=== PATIENT | male | born 1940 | race Caucasian/White ===

== ENCOUNTER → 2016-10-25 | Outpatient (CLI) | payer MEDICARE, BC ==
[~2016-10-25] MED LIST: ACID CONTROLLER20 MG PO; ALBUTEROL20 ml INH; ALDACTAZIDE; ALDACTONE PO; ALLERCLEAR10 MG PO; AMLODIPINE BESY10 MG PO; APRESOLINE PO; ASPIRIN PO; ASPIRIN81 M1 PO; ASPIRIN81 MG PO; ASPIRINEC PO; ATENOLOL PO; ATENOLOL50 MG PO; CARTIA; CARTIA XT PO; CARTIA XT120 MG PO; CENTRUM PO; CERTAGEN PO; CIMETIDINE300 MG PO; CLOPIDOGREL BIS75 MG PO; CRESTOR PO; DILTIAZEM 24HR120 M1 PO; FAMOTIDINE20 M1 PO; FISH OIL 1,0001 CAP PO; FISH OIL 1,001000 MG PO; FISH OIL300 MG PO; FLEXERIL PO; FOSINOPRIL PO; FUROSEMIDE40 MG; FUROSEMIDE40 MG PO; GABAPENTIN300 MG PO; GLUCOTROL PO; GLUCOTROL XL10 MG; GLUCOTROL XL10 MG PO; HUMALOG; HUMULIN N VIAL SUBQ; HYDRALAZINE HCL25 MG PO; HYDRALAZINE HCL50 MG PO; IMDUR-ER30 MG; ISOSORBIDE MONO60 M1 PO; KCL PO; LANTUS SOLOSTAR3 ML SQ; LASIX PO; METOLAZONE2.5 MG PO; MICRO-K10 MEQ PO; MINOXIDIL PO; MUCOMYST200 MG/ML PO; MULTI-DAY VITAM1 TAB PO; MULTI-VITAMIN1 TAB PO; MULTIVITAMINS1 EAC3 PO; NEURONTIN100 MG PO; NORVASC PO; PLAVIX PO; POTASSIUM PO; PRAVASTATIN SOD40 MG PO; PREDNISONE PO; PRESERVISION SO1 CAP PO; PRESERVISION1 EA PO; PRILOSEC PO; RELION NOV100 UNIT/1 SUBQ; RYTHMOL SR PO; SIMVASTATIN40 MG PO; SPIRONOLACTONE50 MG; SPIRONOLACTONE50 MG PO; SYMBICORT; TRICOR134 MG PO; TRILIPIX135 MG PO; ULORIC40 MG PO; VICODIN 5/500 T1 TAB PO; VIT E PO; VITAMIN C; ZAROXYLYN PO; ZYLOPRIM100 MG; ZYLOPRIM100 MG PO; [UNRECOGNIZED DRUG - OTHER]
[2016-10-25 15:39] LABS: ALBUMIN SERUM 3.8 g/dL (3.5-5.0); BILIRUBIN,TOTAL 0.5 mg/dL (0.2-2.0); CALCIUM SERUM 10.6 mg/dL (8.4-10.2); CREATININE SERUM 4.4 mg/dL (0.6-1.4); GLOM FILT RATE Estimated 12.2 mL/min (>60); PHOSPHOROUS 4.5 mg/dL (2.5-4.6); POTASSIUM 4.2 mmol/L (3.5-5.1); PROTEIN TOTAL SERUM 7.5 g/dL (6.0-8.3); URIC ACID 7.2 mg/dL (2.6-7.2)
[2016-10-28 11:08] LABS: CALCIUM (PTHINTACT) 10.9 mg/dL (8.6-10.3)
== END | disposition home or self-care (01) ==
LOC: CLAB 14:57
PROVIDERS: Internal Medicine Nephrology
DX: N25.81 Secondary hyperparathyroidism of renal origin (principal); N18.5 Chronic kidney disease, stage 5
CPT/HCPCS: 36415; 80053; 82310; 83970; 84100; 84550

== ENCOUNTER 2016-11-24 04:26 | Inpatient (IN) | payer MEDICARE, BC ==
--- NOTE | ~2016-11-24 | CT57 ---
[facility] A Service of [facility] RADIOLOGY TEXT RESULTS PATIENT: SIMBA LOMBARDO LOCATION: [facility] 307- : 41 UNIT #: [id number] AGE: [address]: Darlyn Rowley MD SEX: M ORDER DR: [id number] [facility] [address] [place], [place] [address] [id number] I MR#: [id number] Acc #: [id number] NAME: SIMBA LOMBARDO. : 1940 SEX: M STUDY DATE/TIME: 11/26/2016 8:06 UNIT: [address] ROOM: [facility] STUDY DESCRIPTION: CT Chest Wo Cont Attending Physician: Darlyn Rowley M.D. Referring Physician: Reyna Gonsalez M.D. Ordering Physician: Magdiel Gonsales M.D. Primary Care Physician: Nicole Ochoa M.D. MEDICAL IMAGING REPORT This report is preliminary unless electronic signature is present EXAM Chest CT, no contrast, 11/26/16. PROCEDURE Axial unenhanced chest CT with multiplanar reformats. This CT exam was performed with one or more of the following radiation dose reduction techniques: automatic exposure control, adjustment of mA and/or kV according to patient size, and iterative reconstruction. HISTORY Short of air for 2 days. FINDINGS There is no pulmonary infiltrate. There is no pleural effusion. There is some basilar mostly linear densities likely atelectasis, left slightly greater than right, but no consolidation is seen. There is no central airway obstruction. While there are small normal-sized mediastinal lymph nodes, there is no mediastinal mass or suspicious adenopathy. The thoracic aorta is normal in caliber. There are coronary atherosclerotic vascular calcifications. Images of the upper abdomen are remarkable for a small right adrenal low-density mass, probably a benign adenoma about 2.3 cm in size, though larger than at the time of the prior study in 2006, when it measured about 1.5 cm. There is probably also fatty infiltration of the liver. IMPRESSION 1. Minimal mostly linear densities at the lung bases posteriorly, very likely atelectasis, no compelling evidence of consolidation or effusion, pneumothorax or suspicious nodule. 2. Fatty infiltration of the liver. Right adrenal adenoma slightly larger than at the time of the 2007 exam, now about 2.3 compared to 1.5 cm previously. [facility] A Service of [facility] RADIOLOGY TEXT RESULTS PATIENT: SIMBA LOMBARDO LOCATION: [facility] 307-01 : 41 UNIT #: [id number] AGE: [address]: Darlyn Rowley MD SEX: M ORDER DR: 3. Coronary atherosclerotic vascular calcification. Dictated by... Joe Mckeon M.D. THIS IS AN ELECTRONICALLY VERIFIED REPORT Joe Mckeon M.D. at 11/27/2016 10:46 PM ISIDRO/leelee TD: 11/26/2016 16:44 JOB #: [id number] MEDICAL IMAGING REPORT Page 1 of 1 COPY
--- NOTE | ~2016-11-24 | EKG ---
PATIENT: SIMBA LOMBARDO UNIT #: [id number] Ventricular Rate: 97 BPM Atrial Rate: 98 BPM QRS Duration: 76 ms Q-T Interval: 376 ms QTC Calculation(Bezet): 477 ms Calculated R Platte: -5 degrees Calculated T Platte: 46 degrees Diagnosis Line: Atrial fibrillation with premature ventricular or Diagnosis Line: aberrantly conducted complexes Diagnosis Line: Septal infarct , age undetermined Diagnosis Line: Abnormal ECG Diagnosis Line: No previous ECGs available Diagnosis Line: Confirmed by JUDI SHARMA MD ([id number]) on 11/25/2016 Diagnosis Line: 6:26:35 PM INTERPRETING MD: EDITH FAITH
--- NOTE | ~2016-11-24 | NM69 ---
[facility] A Service of [facility] RADIOLOGY TEXT RESULTS PATIENT: SIMBA LOMBARDO LOCATION: [facility] : 41 UNIT #: [id number] AGE: [address]: Darlyn Rowley MD SEX: M ORDER DR: [id number] [facility] [address] [place], [place] [address] [id number] I MR#: [id number] Acc #: [id number] NAME: SIMBA LOMBARDO : 1940 SEX: M STUDY DATE/TIME: 11/25/2016 16:24 [facility]: [facility] STUDY DESCRIPTION: NM Pulm Vent and Perf Attending Physician: Darlyn Rowley M.D. Referring Physician: Reyna Gonsalez M.D. Ordering Physician: Kd Desai M.D. Primary Care Physician: Nicole Ochoa M.D. MEDICAL IMAGING REPORT This report is preliminary unless electronic signature is present EXAM Ventilation-perfusion lung scan 12/25/2016 COMPARISON Chest radiograph 11/24/2016 TECHNIQUE Study performed with 28.2 mCi Tc-99m DTPA aerosol by inhalation followed by 5 mCi Tc-99m MAA IV. FINDINGS Chest radiograph shows some interstitial prominence but no consolidation or effusion. Ventilation images slightly heterogeneous without segmental defect. There are no segmental perfusion defects. IMPRESSION Low likelihood ratio for pulmonary embolism. Dictated by... Joe Mckeon M.D. THIS IS AN ELECTRONICALLY VERIFIED REPORT Joe Mckeon M.D. at 11/26/2016 2:16 PM TEV/pcl TD: 11/25/2016 20:21 JOB #: [id number] MEDICAL IMAGING REPORT [facility] A Service [facility] RADIOLOGY TEXT RESULTS PATIENT: SIMBA LOMBARDO LOCATION: [facility] : 41 UNIT #: [id number] AGE: [address]: Darlyn Rowley MD SEX: M ORDER DR: Page 1 of 1 COPY
--- NOTE | ~2016-11-24 | CR72 ---
[facility] A Service of [facility] RADIOLOGY TEXT RESULTS PATIENT: SIMBA LOMBARDO LOCATION: [facility] 307-01 : 41 UNIT #: [id number] AGE: [address]: Reyna Gonsalez MD SEX: M ORDER DR: [id number] [facility] [address] [place], [place] [address] [id number] I MR#: [id number] Acc #: [id number] NAME: SIMBA LOMBARDO. : 1940 SEX: M STUDY DATE/TIME: 11/24/2016 5:31 UNIT: CEDOF ROOM: [facility] STUDY DESCRIPTION: CR Chest Single View Portable Attending Physician: Vinnie Altamirano M.D. Referring Physician: Vinnie Altamirano M.D. Ordering Physician: Soo Ash M.D. Primary Care Physician: Nicole Ochoa M.D. MEDICAL IMAGING REPORT This report is preliminary unless electronic signature is present EXAM AP portable chest, 11/24/2016 HISTORY 76-year-old male in the ED complaining of new onset shortness of air beginning last evening. He reports a history of congestive heart failure and diabetes. TECHNIQUE AP portable upright chest x-ray. FINDINGS Moderate cardiomegaly is stable since 04/09/2015. Today, mild diffuse interstitial pulmonary edema is present suggesting mild vascular congestion, correlate clinically. Tiny amount of pleural fluid within the minor fissure but no basilar pleural effusion is seen. No airspace consolidation or additional abnormality. IMPRESSION Cardiomegaly with mild diffuse interstitial pulmonary edema. Dictated by... Colton Jones M.D. THIS IS AN ELECTRONICALLY VERIFIED REPORT Colton Jones M.D. at 11/24/2016 9:58 PM Juan TD: 11/24/2016 08:02 JOB #: [id number] MEDICAL IMAGING REPORT Page 1 of 1 COPY
--- NOTE | ~2016-11-24 | US8 ---
[facility] A Service of [facility] RADIOLOGY TEXT RESULTS PATIENT: SIMBA LOMBARDO LOCATION: [facility] - : 41 UNIT #: [id number] AGE: [address]: Darlyn Rowley MD SEX: M ORDER DR: [id number] [facility] [address]. [place], [place] [address] [id number] I MR#: [id number] Acc #: [id number] NAME: SIMBA LOMBARDO : 1940 SEX: M STUDY DATE/TIME: 11/25/2016 13:18 UNIT: [address] ROOM: [facility] STUDY DESCRIPTION: US Abdominal Wall/Quadrant Attending Physician: Darlyn Rowley M.D. Referring Physician: Reyna Gonsalez M.D. Ordering Physician: Darlyn Rowley M.D. Primary Care Physician: Nicole Ochoa M.D. MEDICAL IMAGING REPORT This report is preliminary unless electronic signature is present EXAM Limited abdominal ultrasound, four-quadrant survey HISTORY Ascites. Abdomen distension today. FINDINGS Limited ultrasound, four-quadrant survey of the abdomen was performed to evaluate for the presence of ascites. No ascites is identified. IMPRESSION No abdominal ascites. Dictated by... Santos Hawkins M.D. THIS IS AN ELECTRONICALLY VERIFIED REPORT Santos Hawkins M.D. at 11/25/2016 10:53 PM DFL/peggy TD: 11/25/2016 17:56 JOB #: [id number] MEDICAL IMAGING REPORT Page 1 of 1 COPY
--- NOTE | ~2016-11-24 | CO ---
Unit #: [id number] #: [id number] Patient: SIMBA JACOBS [id number] [address] [place], [place] [address] [id number] I MR#: [id number] NAME: SIMBA JACOBS. ROOM: 307 Age: 76 Sex: M Admission Date: 11/24/2016 : 1940 Attending Physician: Vinnie Altamirano M.D. Primary Care Physician: Nicole Ochoa M.D. Consultation Date: 11/24/2016 CONSULTATION REPORT REASON FOR CONSULT Chronic kidney disease stage 5. HISTORY OF PRESENT ILLNESS Mr. Jacobs is a 76-year-old gentleman well known to Dr. Frances with CKD stage 5, who was admitted with shortness of breath and concern over congestive heart failure. I could not find an ejection fraction in the chart but this is assumed to be diastolic heart failure. He also has a history of COPD and a pericardial effusion with window in the past. Patient saw Dr. Frances in October. The note was reviewed and he has been to the dialysis education class; however, he has refused a fistula to this point. He does not monitor his weight at home but does feel more swollen in the legs and abdomen. He denies any chest pain. No urinary complaints. No nausea, vomiting, or diarrhea. He is on generous doses of diuretics at home. PAST MEDICAL HISTORY 1. CKD stage 5. 2. History of pericardial effusion. 3. Tamponade with window likely due to minoxidil at the time. 4. Diabetes. 5. Congestive heart failure, diastolic in nature. 6. Atrial fibrillation. 7. COPD. 8. GERD. 9. Hyperlipidemia. 10. Obstructive sleep apnea. PAST SURGICAL HISTORY Pericardial window. MEDICATIONS Current meds are as follows: 1. Klor-Con 20 mEq p.o. x1 dose still pending. 2. Atenolol 50 mg twice a day. 3. Hydralazine 25 mg t.i.d. 4. Imdur 60 mg daily. 5. Spironolactone 50 mg a day. 6. Glucotrol XL 10 mg twice a day. 7. Neurontin 200 mg t.i.d. 8. Lipitor 10 mg at bedtime. 9. Amlodipine 10 mg daily. 10. Plavix 75 mg a day. 11. Fenofibrate daily. Unit #: [id number] #: [id number] Patient: SIMBA JACOBS 12. Metolazone 2.5 mg weekly. 13. Multivitamin daily. 14. Fish oil twice a day. 15. Cardizem CD 120 mg at bedtime. 16. Famotidine 20 mg daily. 17. Bumex drip ordered at 2 mg per hour. ALLERGIES He has a coded allergy to NSAIDs. FAMILY HISTORY Negative as far as kidney disease is concerned. SOCIAL HISTORY He is a former smoker, quit when he was 41. 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 No alcohol or drug abuse reported. REVIEW OF SYSTEMS A complete 12-point review of systems was completed with the above findings. In addition, he denies any headaches or dizziness. No fevers. No chills. No nosebleed, sore throat, or earache. No palpitations. No cough or hemoptysis. No bright red blood per rectum or melena. No dysuria. No hematuria. He does have abdominal fullness and leg swelling. No rashes. No itching. No flank pain. No night sweats. No hot flashes. No intolerance to heat or cold. No bleeding issues. He thinks he has gained weight but not sure how much fluid weight has been gained. Unless otherwise indicated, the review of systems was negative. PHYSICAL EXAMINATION VITAL SIGNS: Patient is afebrile. Pulse 86, respiratory rate 22, blood pressure 145/86. GENERAL: This is a 76-year-old male who is alert and oriented x3 in no acute distress. HEENT: Head is atraumatic, normocephalic. Eyes show pink conjunctivae with no sclerae icterus. No nasal drainage or nosebleed. Oropharynx is moist. No thrush. NECK: Thick with no rigidity. HEART: Irregularly irregular with distant S1, S2. No murmur or rub appreciated. LUNGS: Mostly clear with some fine rales. No wheezing or rhonchi. Breathing is nonlabored. ABDOMEN: Obese, distended, nontender. Bowel sounds are present without masses. EXTREMITIES: No lower extremity clubbing or cyanosis. He has 1+ pitting edema below the knees bilaterally. SKIN: Skin is dry with no rashes. He does have some tattoos. MUSCULOSKELETAL: No CVA tenderness to palpation. No joint effusions noted. NEUROLOGIC: Cranial nerves are grossly intact with no gross motor deficits. LYMPHATIC: There is no neck, cervical lymphadenopathy. PSYCHIATRIC: Affect is normal. He does seem upset about being in the hospital. DIAGNOSTIC STUDIES LABORATORY: BNP was 577. INR 1.1. Chemistry early this morning noteworthy for a low potassium of 3.3, creatinine 3.5. Troponin negative. Unit #: [id number] #: [id number] Patient: SIMBA JACOBS CBC was remarkable only for a white count of 13. Last note from our office and lab from October 25 showed a creatinine of 4.4, so his creatinine is actually a little bit below baseline today. IMAGING: Chest x-ray was read as cardiomegaly with mild diffuse interstitial edema. ASSESSMENT AND PLAN 1. Chronic kidney disease stage 5: Overall, his kidney function looks stable. I do think there is room for diuresis, so we will continue him on the Bumex drip. Again, he has refused a fistula placement in the past as Dr. Frances has felt like he is going to be needing dialysis sometime in the near future. He is certainly at a big risk for a cardiac catheterization with dye exposure and if this is felt to be needed by cardiology, we would certainly need to prep beforehand and he would have to be under the understanding that he very well could need dialysis after the heart catheterization. 2. Congestive heart failure which is apparently diastolic in nature. We will continue his Bumex drip and diuresis and monitor daily weights and response. He has been placed on a fluid stricture. 3. Hypokalemia: Replacement has been ordered and I will be rechecking a potassium and a magnesium level this afternoon. 4. Hypertension: The patient is on multiple blood pressure medications and blood pressure at this time seems reasonable and certainly diuresis will help. 5. Chronic obstructive pulmonary disease with obstructive sleep apnea: I do believe pulmonary has been asked to see. 6. History of pericardial effusion with echo ordered. 7. Diabetes. 8. Chronic atrial fibrillation. I would like to thank Dr. Desai for this consult and the opportunity to participate in the evaluation and care of Mr. Jacobs. Dictated by... Denton Davis Jr., MKimberly. TOSHIA/ch TD: 11/24/2016 15:29 JOB #: [id number] CONSULTATION REPORT Page 1 of 1 X Denton Davis MD CONSULTATION REPORT
--- NOTE | ~2016-11-24 | CO ---
Unit #: [id number] #: [id number] Patient: SIMBA LOMBARDO [id number] [facility]. [address] [place], [place] [address] [id number] I MR#: [id number] NAME: SIMBA LOMBARDO. ROOM: 307 Age: 76 Sex: M Admission Date: 11/24/2016 : 1940 Attending Physician: Darlyn Rowley M.D. Primary Care Physician: Nicole Ochoa M.D. CONSULTATION REPORT HISTORY OF PRESENT ILLNESS A 76-year-old white male, followed by Dr. Harlan Broussard with a history of AFib; congestive heart failure; hypertension; hyperlipidemia; diabetes; obstructive sleep apnea; chronic kidney disease, stage 5; tobacco abuse, having reformed 35 years ago; some diastolic dysfunction; valvular heart disease, who presented to [facility]. [facility] after he awoke abruptly at 5:00 a.m. with shortness of breath. He had dyspnea while awake during the day and occasionally awakening from sleep with short of breath. He called EMS. He was transported here. Chest x-ray revealed bilateral interstitial infiltrates consistent with CHF. His lab work was significant for creatinine of 3.5, BNP of 577, normal cardiac enzymes. Lactic acid level of 1.1. He had no cough or purulent sputum, fever, or chills. We have been asked to see. He had been checked in our office in 05/2016 for his obstructive sleep apnea. He was compliant and therapeutic. He was averaging 8 hours and 26 minutes of CPAP use per day. His residual AHI on CPAP was 0.5 indicating a therapeutic effect. He has had outpatient pulmonary function test done for evaluation of dyspnea, which showed no significant obstruction and a normal DLCO, but evidence of small airways disease. PAST MEDICAL HISTORY Significant for AFib; congestive heart failure; hypertension; hyperlipidemia; diabetes; chronic kidney disease, stage 5; obstructive sleep apnea, compliant and therapeutic with CPAP. PAST SURGICAL HISTORY Pericardial window and back surgery. ALLERGIES Nonsteroidals. SOCIAL HISTORY Reformed smoker x35 years. No alcohol or illicit drugs. FAMILY HISTORY Negative for lung disease. HOME MEDICATIONS Atenolol, hydralazine, Imdur, Aldactone, glipizide, Lasix, Neurontin, pravastatin, amlodipine, Plavix, TriCor, metolazone, aspirin, multivitamins, fish oil, Cardizem, Pepcid, Claritin, Novolin, Humulin, Uloric. REVIEW OF SYSTEMS Unit #: [id number] #: [id number] Patient: SIMBA LOMBARDO CONSTITUTIONAL: No fevers or chills. HEENT: No purulent sputum. CARDIOVASCULAR: No chest pain. GI: No nausea or vomiting. : No hematuria or dysuria. ENDOCRINE: No polyuria or polydipsia. HEMATOLOGIC: No easy bleeding or bruising. SKIN: No rash. 10-point system otherwise negative. PHYSICAL EXAMINATION GENERAL: White male, in no distress, lying in bed. VITAL SIGNS: Blood pressure 158/72, pulse 85, respiratory rate 28, afebrile. HEENT: Normocephalic, atraumatic. Pupils are equal, round, and reactive. Sclerae nonicteric. Nasal passages patent. Posterior pharynx crowded. Mallampati III to IV. NECK: Supple. Trachea midline. No cervical or supraclavicular lymphadenopathy. LUNGS: Some crackles at the bases bilaterally. CARDIAC: Heart sounds distant. Irregularly irregular rhythm. Could not appreciate murmur, rub, or gallop. ABDOMEN: Nontender. Bowel sounds present. No hepatosplenomegaly. He does have a large nontender abdomen with evidence of a fluid wave. EXTREMITIES: With 1 to 2+ edema bilaterally. No cords palpated. SKIN: Warm and dry. PSYCHIATRIC: Affect calm. DIAGNOSTIC STUDIES LABORATORY RESULTS: Reviewed. White blood cell count 13,500, hematocrit 45.6, platelet count normal. CARDIOVASCULAR STUDIES: EKG, AFib. IMPRESSION 1. Congestive heart failure. 2. Likely diastolic dysfunction. 3. Atrial fibrillation. 4. Ascites. 5. Obstructive sleep apnea, compliant and therapeutic on CPAP by history. 6. Chronic kidney disease, stage 5. 7. Hypertension. 8. Hyperlipidemia. 9. History of pericardial effusion. PLAN Continue to wear his BiPAP or CPAP nightly. I would recommend diuresis, preload and afterload reduction. He is scheduled to have repeat echocardiogram. I will make further recommendations pending this. Dictated by... Carlos Clemente M.D. SOLO/layne TD: 11/25/2016 06:49 Unit #: [id number] #: [id number] Patient: SIMBA LOMBARDO JOB #: [id number] Harlan Broussard M.D. CONSULTATION REPORT Page 1 of 1 X Carlos Clemente MD CONSULTATION REPORT
--- NOTE | ~2016-11-24 | DS ---
Unit #: [id number] #: [id number] Patient: SIMBA LOMBARDO [id number] [address] [address] [id number] I MR#: [id number] NAME: SIMBA LOMBARDO. ROOM: 307 Age: 76 Sex: M Admission Date: 11/24/2016 : 1940 Discharge Date: Attending Physician: Darlyn Rowley M.D. Referring Physician: Reyna Gonsalez M.D. Primary Care Physician: Nicole Ochoa M.D. DISCHARGE SUMMARY DISCHARGE DIAGNOSES 1. Acute hypoxic respiratory failure. 2. Acute on chronic systolic heart failure. 3. Acute kidney injury. 4. Chronic kidney disease, stage 4. 5. Permanent atrial fibrillation: Patient does not want Coumadin because he had history of hemopericardium. 6. Obstructive sleep apnea. 7. No ascites, no pulmonary embolism. 8. Hypertension. 9. Hyperlipidemia. 10. Diabetes mellitus type 2. 11. Coronary artery disease, status post cardiac cath with left circumflex 30% to 40%. 12. Right coronary artery 70% to 75%. Medical management advised. 13. Ejection fraction 45% to 50%. 14. Hyperlipidemia. 15. On CPAP for obstructive sleep apnea. 16. Hypokalemia. 17. Pericardial effusion with pericardial drain x2 in 2006. 18. Gastroesophageal reflux disease. 19. Former smoker. CONSULTATION 1. Dr. Altamirano. 2. Dr. Gonsales. 3. Dr. Davis. PROCEDURE The patient had a cardiac cath which shows left circumflex 30% to 40%, RCA 70% to 75%. Mild pulmonary hypertension present. ALLERGIES NSAIDs. DISCHARGE MEDICATIONS 1. Neurontin 200 mg three times daily. 2. Loratadine 10 mg daily. 3. Fish oil 300 p.o. b.i.d. 4. TriCor 135 mg p.o. daily. 5. Norvasc 10 daily. 6. Tenormin 50 p.o. b.i.d. 7. Cardizem CD 120 p.o. daily. 8. Lasix 40 p.o. b.i.d. Unit #: [id number] #: [id number] Patient: SIMBA LOMBARDO 9. Metolazone 2.5 p.o. weekly. 10. Pravastatin 40 daily. 11. Hydralazine 25 three times daily. 12. Insulin NPH 20 units subcu three times daily with meals. 13. Humulin N U100 50 units b.i.d. subcu. 14. Pepcid 20 p.o. daily. 15. Multivitamin, one tab daily. 16. Aspirin 81 daily. 17. Plavix 75 daily. 18. Glucotrol XL 10 mg two times daily. 19. Imdur ER 60 daily. 20. Symbicort 160 mcg inhalation, two puffs b.i.d. 21. Albuterol MDI, two puffs inhalation four times daily p.r.n. shortness of breath. 22. Potassium 20 mEq p.o. daily. HOSPITALIZATION COURSE 76-year-old admitted because of shortness of breath. Acute hypoxic respiratory failure from CHF and severe pulmonary hypertension and chronic obstructive pulmonary disease: Currently, he is on 4 L. I am going to check home O2 evaluation and arrange home O2. Acute on chronic systolic heart failure: The patient was seen by cardiology. Patient's diuretics have been held because of acute kidney injury. Currently compensated. Continue the diuretics as per renal. Acute kidney injury with chronic kidney disease stage 5: The patient is seen by Dr. Davis. Currently, creatinine is stable. Patient was monitored 24 hours post cardiac catheterization for the creatinine which is stable. Severe pulmonary hypertension with congestive heart failure: Patient had a cardiac catheterization which shows coronary artery disease. Continue with medical management as per cardiology. Chronic obstructive pulmonary disease with exacerbation: Patient received Duo-Nebs. Continue with albuterol and Symbicort at home. Obstructive sleep apnea: Continue with CPAP. Hypokalemia: Replace with p.o. potassium. I gave prescription for it. History of pericardial effusion with hemopericardium. Patient is refusing Coumadin for A-fib. Atrial fibrillation, rate controlled. No anticoagulation because of patient refusing it. Chronic kidney disease, stage 5. Patient will be discharged home after seen by cardiology. Home O2 evaluation will be done before discharge. Arrange home O2. Follow with family physician in one week time, follow with Dr. Gonsales in two weeks time, follow with Dr. Altamirano as advised. Discharge time taken is 35 minutes. Unit #: [id number] #: [id number] Patient: SIMBA LOMBARDO Dictated by... Shailesh Souza TD: 11/28/2016 10:26 JOB #: [id number] DISCHARGE SUMMARY Page 1 of 1 X Darlyn Rowley MD X DISCHARGE SUMMARY
--- NOTE | ~2016-11-24 | US84 ---
[id number] [facility] [address] [place], [place] [address] [id number] MR#: [id number] Acc #: [id number] NAME: SIMBA LOMBARDO : 1940 SEX: M STUDY DATE/TIME: 11/25/2016 19:19 UNIT: C3A PCU ROOM: 307 STUDY DESCRIPTION: US LE Veins Complete Nic Stdy Attending Physician: Darlyn Rowley M.D. Referring Physician: Reyna Gonsalez M.D. Ordering Physician: Magdiel Gonsales M.D. Primary Care Physician: Nicole Ochoa M.D. MEDICAL IMAGING REPORT This report is preliminary unless electronic signature is present EXAM Bilateral lower extremity venous ultrasound HISTORY Shortness of air for 3 months. Lower extremity pain. TECHNIQUE Venous ultrasound examination of both lower extremities was performed using grayscale, spectral Doppler and color flow Doppler imaging. FINDINGS The examination is negative. There is no evidence of deep venous thrombus from the groin to the lower calf bilaterally. Visualized greater saphenous veins are also patent. IMPRESSION Negative examination. No evidence of lower extremity deep venous thrombosis. Dictated by... Santos Hawkins M.D. THIS IS AN ELECTRONICALLY VERIFIED REPORT Santos Hawkins M.D. at 11/25/2016 10:55 PM Magdaleno TD: 11/25/2016 22:24 JOB #: [id number] MEDICAL IMAGING REPORT Page 1 of 1 COPY
--- NOTE | ~2016-11-24 | HP ---
Unit #: [id number] #: [id number] Patient: SIMBA LOMBARDO [id number] [facility] [address]. [place], [place] [address] [id number] I MR#: [id number] NAME: SIMBA LOMBARDO. ROOM: 307 Age: Sex: M Admission Date: 11/24/2016 : 1940 Attending Physician: Vinnie Altamirano M.D. Referring Physician: Vinnie Altamirano M.D. Primary Care Physician: Nicole Ochoa M.D. HISTORY AND PHYSICAL SEE ADDENDUM REASON FOR ADMISSION Shortness of breath. HISTORY OF PRESENT ILLNESS The patient is a 76-year-old white male who follows with Dr. Broussard in the office for a history of AFib diagnosed in 2006, congestive heart failure, hypertension, hyperlipidemia, diabetes, obstructive sleep apnea, uses a CPAP, chronic kidney disease stage 5, history of tobacco abuse but quit 35 years ago. The patient also has a history of some diastolic dysfunction on an echo here in 2006 with valvular heart disease as well. The patient presented to the [facility] today after he states that around 5 a.m. he abruptly woke up with shortness of breath. 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 On assessment in the ER, the patient is comfortable. He has on oxygen per nasal cannula but states his breathing is improved. The patient denied any kind of chest pain. He did complain of maybe a little bit of pressure but no nausea, vomiting, diarrhea, fevers, chills, palpitations or syncope. The patient had a cardiac cath, he believes, 20 years ago. He is unsure of when his last stress test was but states that last January when he had an office visit with Dr. Broussard it was discussed that he should not have a stress test because even if he did have an abnormal test they would not be able to do a heart cath due to his kidney function and the dye. EKG showed AFib with a controlled rate and occasional PVC but no acute ischemic changes. Troponin is less than 0.05 x2. BNP is 577. Chest x-ray does show some failure with more prominent vasculature. The patient was given an IV dose of Lasix here in the ER and is to be started on a Bumex drip which has not been started. He is also on a nitro drip that currently is at 70 mg/hour and they are titrating just to keep his blood pressure low, although, on arrival to the ER, the patient's blood pressure was only 150/93. We have been asked to admit the patient for shortness of breath for further evaluation and workup. The patient is not very physically active on a daily basis where he states that if he gets up and walks very far, he does get very short of breath. He does not wear oxygen at home but he is limited due to his shortness of breath. He does occasionally go to the grocery store to do shopping but has to stop frequently to take breaks. Unit #: [id number] #: [id number] Patient: SIMBA LOMBARDO PAST MEDICAL HISTORY 1. Permanent AFib. 2. CHF. 3. Hypertension. 4. Hyperlipidemia. 5. Diabetes. 6. Chronic kidney disease stage 5. 7. Obstructive sleep apnea. He uses a CPAP. PAST SURGICAL HISTORY 1. Two pericardial effusions that were drained in July and August of 2006. 2. Back surgery. SOCIAL HISTORY The patient was a tobacco user; however, he quit 35 years ago. He denies any kind of alcohol abuse and no other illicit drug abuse. FAMILY HISTORY He is very nondescript in what family history he has. He just states that his family history is positive for all heart history and all other medical problems. ALLERGIES NSAIDs. HOME MEDICATIONS 1. Atenolol 50 mg twice a day. 2. Hydralazine 25 mg three times a day. 3. Isosorbide mononitrate 60 mg daily. 4. Aldactone 50 mg daily. 5. Glipizide 10 mg twice a day. 6. Lasix 40 mg twice a day. 7. Neurontin 100 mg three times a day. 8. Pravastatin 40 mg daily. 9. Amlodipine 10 mg every evening. 10. Plavix 75 mg p.o. daily. 11. TriCor 135 mg every evening. 12. Metolazone 2.5 mg p.o. weekly. Half a tab one time a week. 13. Aspirin 81 mg daily. 14. Multivitamin one tab p.o. daily. 15. Fish oil 300 mg p.o. twice a day. 16. Cardizem 120 mg p.o. at bedtime. 17. Pepcid 20 mg p.o. daily. 18. Claritin 10 mg p.o. daily. 19. Novolin insulin 70/30 20 units subcu three times a day with meals. 20. Humulin NPH U-100 50 units twice a day. 21. Uloric 40 mg p.o. daily. REVIEW OF SYSTEMS See HPI. PHYSICAL EXAMINATION GENERAL APPEARANCE: This is a 76-year-old white male who is alert and oriented x3, in no apparent distress. VITAL SIGNS: Blood pressure 143/86. Respirations 22. Temp 98.8. Respirations 20. Unit #: [id number] #: [id number] Patient: SIMBA LOMBARDO HEENT: Pupils are equal, round and reactive. Oral mucosa is moist. NECK: Positive JVD. No thyromegaly. No lymphadenopathy. No carotid bruits. HEART: S1, S2. Irregularly irregular. No S3, S4. No clicks. No rubs. No murmurs. LUNGS: Clear and diminished. ABDOMEN: Soft. Bowel sounds positive, nontender, nondistended. EXTREMITIES: Positive swelling. NEUROLOGIC: No neuro deficits noted. DIAGNOSTIC STUDIES LABORATORY: White count 13.5, hemoglobin 14.6, hematocrit 45.6, platelets 216. BNP (1) . Dictated by Charissa Colindres APRN for Kd Desai M.D. Chuyita TD: 11/24/2016 14:01 JOB #: [id number] ADDENDUM DIAGNOSTIC STUDIES LABORATORY: BNP of 577. Troponin of less than 0.05 x2. Sodium 144, potassium 3.3, chloride 108, CO2 25, BUN 32, creatinine 3.5, and glucose 134. IMAGING: Chest x-ray shows pulmonary edema. CARDIOVASCULAR: EKG shows atrial fib with a controlled rate and occasional PVCs noted. IMPRESSION 1. Shortness of breath due to likely exacerbation of heart failure versus some pulmonary component. 2. Acute kidney injury on chronic kidney disease, stage 5. 3. Hypokalemia. 4. History of diastolic heart failure with possible systolic failure. Records are pending. 5. Permanent AFib. 6. Hypertension. 7. Hyperlipidemia. 8. Diabetes. 9. Obstructive sleep apnea, uses CPAP. 10. History of pericardial effusion with pericardial drainage x2 in 2006. 11. Coronary disease that has been nonobstructive. 12. GERD. 13. Former smoker. PLANS Will add a D-dimer to the labs drawn this morning and, if elevated, we will plan to check a CT, PE protocol. Will obtain 2D echo to evaluate LV function as well as any worsening valvular abnormalities. This will also assist in determining if there is any risk of pericardial effusion. Will consult Dr. Frances with renal and Dr. Clemente with pulmonology as these are Unit #: [id number] #: [id number] Patient: SIMBA LOMBARDO his regular physicians to assist us with the management of this patient. Will add lipid profile and the hemoglobin A1c to today's labs. Will replace potassium. Will also ask [facility] to see the patient for diabetes management and possibly assume primary care while the patient is here in the hospital with a cardiology consult. Will place on strict input and output q.4 hours as well as a fluid restriction of 1800 mL in a 24-hour period. We will discontinue the nitro drip for now and restart all home medications for blood pressure and add p.r.n. medications if necessary. Will also trend troponins. Dr. Desai to see and evaluate the patient with any further recommendations. We will also need renal to help us in determining if the patient needs to have a heart cath if he were to rule in or have an abnormal stress during his stay of what the kidney outcome will be. Dictated by Charissa Colindres APRN for Kd Desai M.D. Gilberto TD: 11/24/2016 14:02 JOB #: [id number] HISTORY AND PHYSICAL Page 1 of 1 X X HISTORY AND PHYSICAL
--- NOTE | ~2016-11-24 | CO ---
Unit #: [id number] #: [id number] Patient: SIMBA LOMBARDO [id number] [address] [place], [place] [address] [id number] MR#: [id number] NAME: SIMBA LOMBARDO. ROOM: [facility] Age: 76 Sex: M Admission Date: 11/24/2016 : 1940 Attending Physician: Vinnie Altamirano M.D. Primary Care Physician: Nicole Ochoa M.D. Consultation Date: 11/24/2016 CONSULTATION REPORT REASON FOR CONSULTATION Diabetes management and possible transfer to [facility] with cardiology consult. HISTORY OF PRESENT ILLNESS The patient is a 76-year-old male with past medical history of CHF, chronic kidney disease, COPD, obstructive sleep apnea, hypertension, hyperlipidemia, atrial fibrillation, pericardial effusion, coronary artery disease and GERD who presented to the emergency department for evaluation of the above. The patient states that he has had a long history of shortness of breath. The difficulty breathing became acutely worse this morning around 2 a.m. He states that he had gotten up to use the bathroom and then was never able to catch his breath. He started having a dry cough once he arrived at the emergency department. He also states that he has had intermittent lower extremity swelling for several years. He does not think that it is particularly worse today. He states that he has gained an unknown amount of weight over an unknown duration. He has 2-pillow orthopnea that is not a new problem. He typically has dyspnea on exertion when walking across the street. He states that he has been taking his medications as prescribed. He denies any vomiting. No diarrhea. No urinary symptoms. Upon arrival in the emergency department the patient's initial oxygen saturation was 98% on room air. Chest x-ray showed diffuse edema, mild. Laboratory notable for white blood cell count of 13.5. Troponin was less than 0.05. BUN and creatinine 32 and 3.5 respectively. BNP was 577. He was started on nitroglycerin drip. He was also given 60 mg of Lasix IV. He was admitted by Dr. Beavers. PAST MEDICAL HISTORY 1. [facility] for a diabetic wound. 2. Coronary artery disease, followed by Dr. Broussard. 3. Congestive heart failure. The patient had an echocardiogram, per cardiology's note, in 2006. It showed diastolic dysfunction, mild mitral regurgitation. 4. Hypertension. 5. Hyperlipidemia. 6. Diabetes. 7. Atrial fibrillation, not on chronic anticoagulation. 8. History of pericardial effusion status post pericardial window. 9. GERD. 10. Chronic kidney disease, stage 5, followed by Dr. Frances. Unit #: [id number] #: [id number] Patient: SIMBA LOMBARDO 11. Obstructive sleep apnea, on CPAP, followed by Dr. Clemente. PAST SURGICAL HISTORY 1. Cardiac catheterization around 20 years ago. 2. History of pericardial window. 3. Colonoscopy. SOCIAL HISTORY The patient lives with his . There is no tobacco or alcohol use. 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 CODE STATUS [id number]. FAMILY HISTORY Notable for his brother having diabetes. ALLERGIES NSAIDs. HOME MEDICATIONS 1. Atenolol 50 mg b.i.d. 2. Hydralazine 25 mg t.i.d. 3. Isosorbide mononitrate 60 mg daily. 4. Spironolactone 50 mg daily. 5. Glucotrol 10 mg b.i.d. 6. Furosemide 40 mg b.i.d. 7. Neurontin 100 mg t.i.d. 8. Pravastatin 40 mg daily. 9. Amlodipine 10 mg daily. 10. Clopidogrel 75 mg daily. 11. TriCor 135 mg daily. 12. Metolazone 2.5 mg weekly. 13. Aspirin 81 mg daily. 14. Multivitamin daily. 15. Fish oil 300 mg b.i.d. 16. Cartia 120 mg at bedtime. 17. Famotidine 20 mg daily. 18. Loratadine 10 mg daily. 19. NPH 70/30 - 20 units t.i.d. with meals. 20. Humulin-N 50 units b.i.d. 21. Uloric 40 mg daily. REVIEW OF SYSTEMS A complete review of systems is negative except as indicated in the HPI. The patient states that his blood sugars are typically in the 200s. PHYSICAL EXAMINATION VITAL SIGNS: Temperature was initially 98.8, pulse 112, respirations 24, blood pressure 150/93, oxygen saturation listed here is 92% on room air. GENERAL: The patient is a male who is awake and alert sitting up in bed. HEENT: The head is atraumatic. Mucous membranes are moist. NECK: Supple. Trachea is midline. CARDIOVASCULAR: Irregular. RESPIRATORY: Lungs demonstrate decreased breath sounds at the bases. Breathing is not labored with conversation. ABDOMEN: Obese, soft, nontender with bowel sounds present in all 4 Unit #: [id number] #: [id number] Patient: SIMBA LOMBARDO. EXTREMITIES: Extremities show 1+ pitting edema of bilateral lower extremities. NEUROLOGIC: The patient is awake and alert. He follows commands. PSYCHIATRIC: Mood and affect are normal. The patient is cooperative. SKIN: Skin of examined areas is warm and dry. DIAGNOSTIC TESTS CARDIOVASCULAR: EKG shows atrial fibrillation with premature ventricular aberrantly conducted complexes, rate of 97 beats per minute. IMAGING: Chest x-ray shows moderate cardiomegaly with mild diffuse interstitial pulmonary edema. LABORATORY: Complete blood count notable for white blood cell count of 13.5. Troponin is less than 0.05. Lactic acid is 1.1. comprehensive metabolic panel notable for potassium of 3.3, glucose 134, BUN and creatinine 32 and 3.5 respectively. INR is 1.1. BNP is 577. D-dimer is 379. ASSESSMENT 1. The patient is a 76-year-old male with dyspnea, likely multifactorial in etiology with CHF, chronic kidney disease and COPD all contributing. 2. Congestive heart failure exacerbation. The patient is currently on Bumex drip being seen by cardiology. An echocardiogram has been ordered. 3. Chronic kidney disease, stage 5. The patient has declined fistula placement. Dr. Davis is currently seeing the patient. 4. COPD, not on home oxygen. The patient sees Dr. Clemente, and he has already been consulted. 5. Obstructive sleep apnea, on CPAP. 6. Hypokalemia. This has not been replaced. Dr. Davis has ordered repeat level. 7. Hypertension. 8. Hyperlipidemia. 9. Atrial fibrillation. Currently rate controlled. 10. History of pericardial effusion status post pericardial window. 11. Coronary artery disease. 12. GERD. 13. Former smoker. PLAN We are happy to assume care of this patient. Dr. Davis has already seen the patient. Dr. Clemente has been consulted. I have ordered a hemoglobin A1C, as well as low dose sliding scale insulin with Accu-Cheks. Will also check magnesium level. I have ordered CPAP at home settings. Will continue to monitor the patient closely. Will follow up on results of echocardiogram. Regarding code status, the patient is a [id number]. Dictated by... Reyna Gonsalez M.D. [facility] Unit #: [id number] #: [id number] Patient: SIMBA LOMBARDO TD: 11/24/2016 13:16 JOB #: [id number] CONSULTATION REPORT Page 1 of 1 X Reyna Gonsalez MD X CONSULTATION REPORT
--- NOTE | ~2016-11-24 | CR72 ---
[facility] A Service of [facility] & [facility] RADIOLOGY TEXT RESULTS PATIENT: SIMBA LOMBARDO LOCATION: [facility] 307- : [birth year] UNIT #: [id number] AGE: [address]: Darlyn Rowley MD SEX: M ORDER DR: [id number] [facility] [address] [place], [place] [address] [id number] MR#: [id number] #: [id number] NAME: SIMBA LOMBARDO : 1940 SEX: M STUDY DATE/TIME: 11/25/2016 17:17 UNIT: [address] ROOM: [facility] STUDY DESCRIPTION: CR Chest Single View Portable Attending Physician: Darlyn Rowley M.D. Referring Physician: Reyna Gonsalez M.D. Ordering Physician: Darlyn Rowley M.D. Primary Care Physician: Nicole Ochoa M.D. MEDICAL IMAGING REPORT This report is preliminary unless electronic signature is present EXAM Portable chest 11/25/2016 HISTORY Shortness of air for 2 days. Essential hypertension. COMPARISON STUDIES Chest 11/24/2016, FINDINGS Frontal chest again demonstrates cardiomegaly with mild central vascular congestion and diffuse bilateral interstitial opacities. No change from prior exam. No pneumothorax. Suspected small left pleural effusion. IMPRESSION No significant improvement in cardiomegaly and bilateral interstitial edema. Questionable small left pleural effusion. Dictated by... Yonatan Lu M.D. THIS IS AN ELECTRONICALLY VERIFIED REPORT Yonatan Lu M.D. at 11/26/2016 9:10 AM AARTI/luis alfredo TD: 11/25/2016 20:31 JOB #: [id number] MEDICAL IMAGING REPORT Page 1 of 1 COPY
--- NOTE | ~2016-11-24 | CO ---
Unit #: [id number] #: [id number] Patient: SIMBA LOMBARDO [id number] [address] [place], [place] [address] [id number] MR#: [id number] NAME: SIMBA LOMBARDO ROOM: [facility] Age: 76 Sex: M Admission Date: 11/24/2016 : 1940 Attending Physician: Darlyn Rowley M.D. Primary Care Physician: Nicole Ochoa M.D. CONSULTATION REPORT REASON FOR CONSULTATION Dyspnea. CHIEF COMPLAINT Shortness of breath. HISTORY OF PRESENT ILLNESS This is a 76-year-old male who has a past medical history of diastolic heart failure and extensive smoking, quit 30 years ago. Has obstructive sleep apnea, diabetes mellitus, hypertension. 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 Came in with a complaint of shortness of breath and has been admitted for further evaluation. Patient was found to be in atrial fibrillation with a controlled heart rate with elevated BNP of 577. Chest x-ray suggestive of bilateral pulmonary edema and likely pleural effusions as well. I am seeing him at the bedside, currently complaining of exertional dyspnea, cannot walk even one block without getting short of breath. He cannot do his usual activity which he used to do one year ago. Denies any nausea, vomiting, diarrhea. No recent history of traveling. PAST MEDICAL HISTORY 1. Atrial fibrillation. 2. Congestive heart failure. 3. Hypertension. 4. Dyslipidemia. 5. Diabetes. 6. Chronic kidney disease. 7. Obstructive sleep apnea, likely COPD. PAST SURGICAL HISTORY 1. Pericardial window. 2. Back surgery. ALLERGIES Nonsteroidal. SOCIAL HISTORY Ex-smoker. No alcohol. No drug abuse. MEDICATIONS 1. Atenolol. 2. Hydralazine. 3. Aldactone. Unit #: [id number] #: [id number] Patient: SIMBA LOMBARDO 4. Glipizide. 5. Lasix. 6. Neurontin. 7. Pravastatin. 8. Amlodipine. 9. Plavix. 10. Tricor. 11. Metolazone. 12. Aspirin. 13. Multivitamin. 14. Cardizem. 15. Pepcid. 16. Claritin. 17. Novolin. 18. Humulin. 19. Uloric. PHYSICAL EXAMINATION VITAL SIGNS: Temperature currently is 98, pulse is 92, respirations 16, blood pressure 128/72. NEUROLOGIC: Awake, alert, oriented. No neuro deficit. HEENT: PERRLA plus 1. NECK: Supple. No JVD. CHEST: Bilateral air entry. Bilateral mild rhonchi. GASTROINTESTINAL: Nontender, soft. Bowel sounds positive. EXTREMITIES: Three plus edema. DIAGNOSTIC STUDIES LABORATORY: Creatinine is 3.9. His potassium is 2.6. His BNP 577. White count is 9, hemoglobin 13, hematocrit 41, platelet count 186,000. IMAGING: Chest x-ray has been reviewed. ASSESSMENT 1. Exertional dyspnea, acute. 2. Acute exacerbation of congestive heart failure, diastolic. 3. Severe pulmonary hypertension, very likely underlying chronic obstructive pulmonary disease and possible element of chronic lung disease also considering patient's abnormal chest x-ray. 4. Obstructive sleep apnea. 5. Chronic kidney disease. PLAN At this point, plan is to get a noncontrast CT of the chest to better evaluate the lung parenchyma and to get a V/Q scan as well as Doppler of lower extremity to rule out any chronic thromboembolic disease. For workup for his underlying pulmonary hypertension, patient definitely will benefit from inpatient right heart catheterization during this admission since his volume status has been stabilized and will continue diuretics as per nephrology. Will request blood gas on room air to quantify his hypoxia and the need for home oxygen and I will also exercise oximetry as well and may end up having a bubble study as well if right heart catheterization cannot be done. Patient will benefit from bronchodilators. Will start him on inhaled corticosteroids along with long-acting beta agonist and will recommend rate control as per cardiology. Continue CPAP. Patient will be closely monitored. I would like to thank you for your kind consideration to involve me in Unit #: [id number] #: [id number] Patient: SIMBA LOMBARDO taking care of this patient. Dictated by.Allison. Shailesh Joyce TD: 11/25/2016 15:56 JOB #: [id number] CONSULTATION REPORT Page 1 of 1 X Magdiel Gonsales MD CONSULTATION REPORT
[~2016-11-24 04:26] MED LIST changes: -ACID CONTROLLER20 MG PO; -ALBUTEROL20 ml INH; -ALLERCLEAR10 MG PO; -ASPIRIN81 MG PO; -CLOPIDOGREL BIS75 MG PO; -FISH OIL300 MG PO; -GLUCOTROL XL10 MG PO; -HUMULIN N VIAL SUBQ; -HYDRALAZINE HCL25 MG PO; -ISOSORBIDE MONO60 M1 PO; -MULTIVITAMINS1 EAC3 PO; -NEURONTIN100 MG PO; -RELION NOV100 UNIT/1 SUBQ; -SPIRONOLACTONE50 MG PO; -SYMBICORT; -TRICOR134 MG PO; -ULORIC40 MG PO; -ZYLOPRIM100 MG PO
[2016-11-24 05:13] LABS: BASOPHIL# 0.1 X10e3 (0-0.3); BASOPHIL% 0.8 % (0-2.5); EOSINOPHIL# 0.1 X10e3 (0-0.7); EOSINOPHIL% 0.9 % (0.0-7.0); HEMATOCRIT 45.6 % (38.0-50.0); HEMOGLOBIN 14.6 gm/dL (13.0-16.0); LYMPHOCYTE# 2.3 X10e3 (1.0-3.5); LYMPHOCYTE% 16.8 % (17.0-45.0); MEAN CELL VOLUME 82.8 FL (83-96); MEAN CORPUSCULAR HEMOGLOBIN 26.4 PG (28-34); MEAN CORPUSCULAR HGB CONC 31.9 g/dL (30-36); MEAN PLATELET VOLUME 8.1 FL (6.5-11.5); MONOCYTE# 0.8 X10e3 (0-1.0); MONOCYTE% 5.9 % (3.0-12.0); NEUTROPHIL# 10.2 X10e3 (1.5-7.1); NEUTROPHIL% 75.6 % (40-75); PLATELET COUNT 216 X10e3 (140-420); RED BLOOD COUNT 5.51 X10e (3.90-5.60); RED CELL DISTRIBUTION WIDTH 18.5 % (11.0-15.5); WHITE BLOOD COUNT 13.5 X10e3 (4.0-10.5)
[2016-11-24 05:15] LABS: DIFF IND NO
[2016-11-24 05:17] LABS: POC - CKMB 1.3 ng/mL (0.0-7.9); POC - TROPONIN <0.05 ng/mL (<=0.05)
[2016-11-24 05:47] LABS: INR 1.1; PROTHROMBIN TIME (PATIENT) 11.7 SECONDS (9.6-11.5)
[2016-11-24 05:49] LABS: ALBUMIN SERUM 3.5 g/dL (3.5-5.0); BILIRUBIN, DIRECT 0.1 mg/dL (0.0-0.2); BILIRUBIN,TOTAL 1.1 mg/dL (0.2-2.0); BUN/CREATININE RATIO 9.14; CREATININE SERUM 3.5 mg/dL (0.6-1.4); GLOM FILT RATE Estimated 16.1 mL/min (>60); POTASSIUM 3.3 mmol/L (3.5-5.1); PROTEIN TOTAL SERUM 7.4 g/dL (6.0-8.3)
[2016-11-24] MEDS ORDERED: ATENOLOL50 MG PO (07:32)
[2016-11-24] MEDS ORDERED: HYDRALAZINE HCL25 MG PO (07:32)
[2016-11-24] MEDS ORDERED: ISOSORBIDE MONO60 M1 PO (07:33)
[2016-11-24] MEDS ORDERED: ZYLOPRIM100 MG PO (07:34)
[2016-11-24] MEDS ORDERED: SPIRONOLACTONE50 MG PO (07:34)
[2016-11-24] MEDS ORDERED: GLUCOTROL XL10 MG PO (07:34)
[2016-11-24] MEDS ORDERED: FUROSEMIDE40 MG PO (07:35)
[2016-11-24] MEDS ORDERED: NEURONTIN100 MG PO (07:36)
[2016-11-24] MEDS ORDERED: PRAVASTATIN SOD40 MG PO (07:36)
[2016-11-24] MEDS ORDERED: CLOPIDOGREL BIS75 MG PO (07:37)
[2016-11-24] MEDS ORDERED: AMLODIPINE BESY10 MG PO (07:37)
[2016-11-24 07:38] LABS: POC - CKMB 1.3 ng/mL (0.0-7.9); POC - TROPONIN <0.05 ng/mL (<=0.05)
[2016-11-24] MEDS ORDERED: TRICOR134 MG PO (07:38)
[2016-11-24] MEDS ORDERED: METOLAZONE2.5 MG PO (07:38)
[2016-11-24] MEDS ORDERED: FISH OIL300 MG PO (07:39)
[2016-11-24] MEDS ORDERED: MULTIVITAMINS1 EAC3 PO (07:39)
[2016-11-24] MEDS ORDERED: ASPIRIN81 MG PO (07:39)
[2016-11-24] MEDS ORDERED: CARTIA XT120 MG PO (07:40)
[2016-11-24] MEDS ORDERED: ACID CONTROLLER20 MG PO (07:40)
[2016-11-24] MEDS ORDERED: ALLERCLEAR10 MG PO (07:43)
[2016-11-24] MEDS ORDERED: RELION NOV100 UNIT/1 SUBQ (07:45)
[2016-11-24] MEDS ORDERED: ULORIC40 MG PO (07:46)
[2016-11-24] MEDS ORDERED: HUMULIN N VIAL SUBQ (07:46)
[2016-11-24 10:59] LABS: CHOLESTEROL 136 mg/dL (0-200); HDL CHOLESTEROL 27 mg/dL (29-75); LDL CHOLESTEROL 64 mg/dL (-130); LDL/HDL RATIO 2 RATIO (0-4); TRIGLYCERIDES 223 mg/dL (10-160)
[2016-11-24 14:34] LABS: MAGNESIUM 1.9 mg/dL (1.6-3.0); POTASSIUM 3.2 mmol/L (3.5-5.1)
[2016-11-25 05:35] LABS: BASOPHIL# 0.1 X10e3 (0-0.3); BASOPHIL% 0.7 % (0-2.5); EOSINOPHIL% 0.1 % (0.0-7.0); HEMATOCRIT 41.1 % (38.0-50.0); HEMOGLOBIN 13.1 gm/dL (13.0-16.0); LYMPHOCYTE# 1.1 X10e3 (1.0-3.5); LYMPHOCYTE% 11.3 % (17.0-45.0); MEAN CELL VOLUME 83.1 FL (83-96); MEAN CORPUSCULAR HEMOGLOBIN 26.5 PG (28-34); MEAN CORPUSCULAR HGB CONC 31.9 g/dL (30-36); MEAN PLATELET VOLUME 8.6 FL (6.5-11.5); MONOCYTE# 0.7 X10e3 (0-1.0); MONOCYTE% 7.1 % (3.0-12.0); NEUTROPHIL% 80.8 % (40-75); PLATELET COUNT 186 X10e3 (140-420); RED BLOOD COUNT 4.95 X10e (3.90-5.60); RED CELL DISTRIBUTION WIDTH 18.2 % (11.0-15.5); WHITE BLOOD COUNT 9.9 X10e3 (4.0-10.5)
[2016-11-25 05:48] LABS: DIFF IND NO
[2016-11-25 06:21] LABS: ALBUMIN SERUM 3.1 g/dL (3.5-5.0); BILIRUBIN,TOTAL 1.4 mg/dL (0.2-2.0); BUN/CREATININE RATIO 8.97; CREATININE SERUM 3.9 mg/dL (0.6-1.4); GLOM FILT RATE Estimated 14.1 mL/min (>60); MAGNESIUM 1.9 mg/dL (1.6-3.0); PHOSPHOROUS 3.3 mg/dL (2.5-4.6); PROTEIN TOTAL SERUM 7.1 g/dL (6.0-8.3); URIC ACID 8.8 mg/dL (2.6-7.2)
[2016-11-25 06:24] LABS: POTASSIUM 2.6 mmol/L (3.5-5.1)
[2016-11-25 07:13] LABS: URINE APPEARANCE CLEAR; URINE BILIRUBIN NEG (NEG); URINE BLOOD TRACE (NEG); URINE COLOR YELLOW; URINE GLUCOSE 250 MG/DL (NEG); URINE KETONE NEG (NEG); URINE LEUKOCYTE ESTERASE NEG (NEG); URINE NITRATE NEG (NEG); URINE PROTEIN 2+ (NEG); URINE UROBILINOGEN 0.2 MG/DL (NEG)
[2016-11-25 07:15] LABS: URBCS1 AUWI 0-2 /[HPF] (0-2); URINE BACTERIA AUWI NEG (NEGATIVE); URINE SQUAMOUS EPITHELIAL CELL NONE SEEN /[HPF]; UWBCS1 AUWI 0-2 (0-5)
[2016-11-25 20:22] LABS: ARTERIAL BLOOD GAS PCO2 38.4 mmHg (35.0-45.0); ARTERIAL BLOOD GAS PO2 50.3 mmHg (80.0-100); ARTERIAL BLOOD GAS pH 7.512 (7.350-7.450)
[2016-11-25 20:23] LABS: ARTERIAL BLD GAS O2 SATURATION 87.7 % (90.0-100.0); ARTERIAL BLOOD GAS ALLEN TEST NORMAL; ARTERIAL BLOOD GAS ART SITE RIGHT RADIAL; ARTERIAL BLOOD GAS CARBOXY HB 1.5 %sat (0.0-9.0); ARTERIAL BLOOD GAS DELIVERY ROOM AIR; ARTERIAL BLOOD GAS HCO3 30.8 mmol/L; ARTERIAL BLOOD GAS MET HB 0.5 %sat (0.0-2.0); ARTERIAL DRAW? YES
[2016-11-26 05:47] LABS: HEMATOCRIT 46.1 % (38.0-50.0); HEMOGLOBIN 14.7 gm/dL (13.0-16.0); MEAN CELL VOLUME 83.7 FL (83-96); MEAN CORPUSCULAR HEMOGLOBIN 26.7 PG (28-34); MEAN CORPUSCULAR HGB CONC 31.9 g/dL (30-36); MEAN PLATELET VOLUME 8.3 FL (6.5-11.5); RED BLOOD COUNT 5.5 X10e (3.90-5.60); RED CELL DISTRIBUTION WIDTH 17.9 % (11.0-15.5); WHITE BLOOD COUNT 10.9 X10e3 (4.0-10.5)
[2016-11-26 06:36] LABS: BUN/CREATININE RATIO 11.7; CALCIUM SERUM 9.6 mg/dL (8.4-10.2); CREATININE SERUM 4.1 mg/dL (0.6-1.4); GLOM FILT RATE Estimated 13.3 mL/min (>60); MAGNESIUM 2.6 mg/dL (1.6-3.0); POTASSIUM 3.7 mmol/L (3.5-5.1)
[2016-11-27 06:58] LABS: BUN/CREATININE RATIO 13.33; CALCIUM SERUM 9.2 mg/dL (8.4-10.2); CREATININE SERUM 4.2 mg/dL (0.6-1.4); GLOM FILT RATE Estimated 12.9 mL/min (>60); MAGNESIUM 2.3 mg/dL (1.6-3.0)
[2016-11-28 05:09] LABS: HEMATOCRIT 41.7 % (38.0-50.0); HEMOGLOBIN 13.2 gm/dL (13.0-16.0); MEAN CELL VOLUME 83.9 FL (83-96); MEAN CORPUSCULAR HEMOGLOBIN 26.5 PG (28-34); MEAN CORPUSCULAR HGB CONC 31.7 g/dL (30-36); MEAN PLATELET VOLUME 8.5 FL (6.5-11.5); RED BLOOD COUNT 4.97 X10e (3.90-5.60); RED CELL DISTRIBUTION WIDTH 18.1 % (11.0-15.5); WHITE BLOOD COUNT 7.5 X10e3 (4.0-10.5)
[2016-11-28 05:54] LABS: BUN/CREATININE RATIO 14.87; CREATININE SERUM 4.1 mg/dL (0.6-1.4); GLOM FILT RATE Estimated 13.3 mL/min (>60); POTASSIUM 3.4 mmol/L (3.5-5.1)
[2016-11-28] MEDS ORDERED: SYMBICORT (11:24)
[2016-11-28] MEDS ORDERED: ALBUTEROL20 ml INH (11:27)
[2016-11-28] MEDS ORDERED: KCL PO (11:28)
[2016-12-01 14:07] LABS: ANA SCREEN Negative (Negative)
== END 2016-11-28 15:41 | disposition home health service (06) | DRG 286 ==
LOC: CED 04:26 → CEDOF 06:25 → C3A PCU 06:25 → CEDOF 06:38 → CED 06:38 → C3A PCU 10:45
PROVIDERS: Emergency Medicine; Family Medicine; Internal Medicine; Internal Medicine Cardiovascular Disease; Internal Medicine Nephrology
PROC: B24BYZZ Ultrasonography of Heart with Aorta using Other Contrast (ICD-10-PCS; principal; 2016-11-24)
PROC: 4A023N8 Measurement of Cardiac Sampling and Pressure, Bilateral, Percutaneous Approach (ICD-10-PCS; 2016-11-26)
PROC: B211YZZ Fluoroscopy of Multiple Coronary Arteries using Other Contrast (ICD-10-PCS; 2016-11-26)
DX: I13.2 Hypertensive heart and chronic kidney disease with heart failure and with stage 5 chronic kidney disease, or end stage renal disease (principal); J96.01 Acute respiratory failure with hypoxia; N17.9 Acute kidney failure, unspecified; N18.5 Chronic kidney disease, stage 5; E11.22 Type 2 diabetes mellitus with diabetic chronic kidney disease; I27.2 Other secondary pulmonary hypertension; I50.23 Acute on chronic systolic (congestive) heart failure; I48.2 Chronic atrial fibrillation; E78.5 Hyperlipidemia, unspecified; K21.9 Gastro-esophageal reflux disease without esophagitis; Z87.891 Personal history of nicotine dependence; G47.33 Obstructive sleep apnea (adult) (pediatric); I34.0 Nonrheumatic mitral (valve) insufficiency; Z79.4 Long term (current) use of insulin; Z79.82 Long term (current) use of aspirin; E87.6 Hypokalemia; J44.9 Chronic obstructive pulmonary disease, unspecified; I25.119 Atherosclerotic heart disease of native coronary artery with unspecified angina pectoris
CPT/HCPCS: 36600; 71010; 71250; 76705; 78582; 80048; 80053; 80061; 80076; 81003; 82553; 82803; 82947; 83036; 83605; 83735; 83880; 84100; 84132; 84484; 84550; 85025; 85027; 85379; 85610; 85730; 86038; 86039; 87040; 93005; 93306; 93970; 94640; 94660; 94664; 94760; 96365; 96366; 96375; 99285; A9540; A9567; C1769; C1887; C1894; J1644; J1815; J1940; J2250; J3010; J3475

== ENCOUNTER → 2017-02-09 | Outpatient (CLI) | payer MEDICARE, BC ==
[~2017-02-09] MED LIST changes: +ACID CONTROLLER20 MG PO; +ALBUTEROL20 ml INH; +ALLERCLEAR10 MG PO; +ASPIRIN81 MG PO; +CLOPIDOGREL BIS75 MG PO; +FISH OIL300 MG PO; +GLUCOTROL XL10 MG PO; +HUMULIN N VIAL SUBQ; +HYDRALAZINE HCL25 MG PO; +ISOSORBIDE MONO60 M1 PO; +MULTIVITAMINS1 EAC3 PO; +NEURONTIN100 MG PO; +RELION NOV100 UNIT/1 SUBQ; +SPIRONOLACTONE50 MG PO; +SYMBICORT; +TRICOR134 MG PO; +ULORIC40 MG PO; +ZYLOPRIM100 MG PO
[2017-02-09 15:46] LABS: HEMOGLOBIN 13.4 gm/dL (13.0-16.0); MEAN CELL VOLUME 79.3 FL (83-96); MEAN CORPUSCULAR HEMOGLOBIN 25.3 PG (28-34); MEAN PLATELET VOLUME 7.8 FL (6.5-11.5); RED BLOOD COUNT 5.3 X10e (3.90-5.60); RED CELL DISTRIBUTION WIDTH 18.6 % (11.0-15.5); WHITE BLOOD COUNT 9.4 X10e3 (4.0-10.5)
[2017-02-09 16:14] LABS: ALBUMIN SERUM 3.5 g/dL (3.5-5.0); BILIRUBIN,TOTAL 0.5 mg/dL (0.2-2.0); BUN/CREATININE RATIO 10.44; CALCIUM SERUM 9.4 mg/dL (8.4-10.2); CREATININE SERUM 4.5 mg/dL (0.6-1.4); GLOM FILT RATE Estimated 11.9 mL/min (>60); PHOSPHOROUS 4.5 mg/dL (2.5-4.6); POTASSIUM 3.9 mmol/L (3.5-5.1); PROTEIN TOTAL SERUM 7.4 g/dL (6.0-8.3); URIC ACID 8.5 mg/dL (2.6-7.2)
[2017-02-13 08:11] LABS: CALCIUM (PTHINTACT) 9.8 mg/dL (8.6-10.3)
== END | disposition home or self-care (01) ==
LOC: CLAB 15:22
PROVIDERS: Internal Medicine Nephrology
DX: N18.5 Chronic kidney disease, stage 5 (principal); D63.1 Anemia in chronic kidney disease; N25.81 Secondary hyperparathyroidism of renal origin
CPT/HCPCS: 36415; 80053; 82310; 83970; 84100; 84550; 85027